=== PATIENT | male | born 1940 | race Caucasian/White ===

== ENCOUNTER 2016-11-17 10:51 | Emergency (ER) | payer OTHER ==
[2016-11-17 11:15] VITALS: BP 147/51
--- NOTE | 2016-11-17 12:30 | Diag Imaging Result Document ---
PROCEDURE NAME: KNEE 3 VIEWS LEFT - 11/17/2016 LEFT KNEE 3 VIEWS: FINDINGS: No fracture. No dislocation. Mild to moderate medial joint space narrowing. There is bone spurring at the medial tibial plateau and femoral condyle. There is also small bone spurring to the patella. IMPRESSION: 1. No acute bony injury. 2. Moderate arthritic changes.
--- NOTE | 2016-11-17 12:55 | PROVIDER DOCUMENTATION ---
HPI-Musculoskeletal Pain/Inj - GENERAL Source: patient <Bren Bhakta - Last Filed: 11/17/16 13:20> - GENERAL Source: patient - HX OF PRESENT ILLNESS-MUSKULOSKELTAL Quality of Pain: reports: aching Severity in ED: moderate Onset/Duration: last night Timing: still present Any recent injury?: Yes Similar Symptoms Previously?: No Recently seen or treated by another doctor?: No <Geoff Rodriguez - Last Filed: 11/17/16 13:31> - GENERAL Chief Complaint: Extremity Injury Stated Complaint: KNEE INJURY Time Seen by Provider: 11/17/16 12:53 - HX OF PRESENT ILLNESS-MUSKULOSKELTAL Nature of Presenting Problem: Reports to er with cc of left knee pain secondary to carrying food to the table last night and tripping and falling hitting inferior aspect of left knee on stairs. Reports unable to bear weight now fully. Denies numbness,tingling, swelling. (Geoff Rodriguez) Review of Systems - Adult - REVIEW OF SYSTEMS - ADULT Constitutional: denies: chills, fever, fatique Eyes: reports: no symptoms reported Ears, Nose, Mouth & Throat: reports: no symptoms reported Cardiovascular: denies: chest pain, syncope Respiratory: denies: cough, dyspnea on exertion, shortness of breath, wheezing Gastrointestinal: denies: abdominal pain, diarrhea, nausea, vomiting Genitourinary: denies: dysuria, flank pain, frequent UTI's Musculoskeletal: reports: see HPI, joint pain. denies: frequent leg cramps, joint swelling Integumentary: reports: no symptoms reported Neurological: reports: no symptoms reported Psychiatric: reports: no symptoms reported Endocrine: reports: no symptoms reported Hematologic/Lymphatic: reports: no symptoms reported Allergic/Immunologic: reports: no symptoms reported All Other Systems: Reviewed and Negative <Geoff Rodriguez - Last Filed: 11/17/16 13:31> Past History - Adult - PAST MEDICAL HISTORY-ADULT Review of Records: reports: Nursing Assessment Review, Medications Reviewed Major Childhood Illnesses: reports: denies history Cardiovascular: reports: CAD Respiratory: reports: asthma - PRIOR SURGERIES/PROCEDURES Surgical/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 - IMMUNIZATION STATUS Childhood Immunizations: See Nurse Assessment Flu Vaccine: See Nurse Assessment - FAMILY HISTORY Family History: reviewed, not pertinent - SOCIAL HISTORY Smoking: other (former) Substance Use: none/never <Geoff Rodriguez - Last Filed: 11/17/16 13:31> Physical Exam-Injury Related - Physical Exam-Injury Related Initial Vital Signs Reviewed: Yes General Appearance: appears well, alert, no apparent distress Immobilization?: negative: backboard, C-collar Eyes: PERRL/EOMI Neck: non-tender, full range of motion, supple, normal inspection Respiratory: chest non-tender, lungs clear, normal breath sounds, no pleuratic chest pain, no respiratory distress, no accessory muscle use Cardiovascular: normal peripheral pulses, regular rate, rhythm, no edema, no gallop, no JVD, no murmur Abdominal Exam: non tender, soft, no organomegaly, no pulsatile mass Back Exam: normal inspection, no CVA tenderness, no vertebral tenderness Extremity: normal range of motion, no pedal edema, no calf tenderness, normal capillary refill, tenderness (left knee ttp patellar tendon negative laxity neg ap drawer no ttp joint line). negative: swelling Integumentary: normal color, warm/dry Psych/Mental Status: normal mood/affect, normal thought content, normal thought process, oriented x 3 - Glascow Coma Score Best Eye Response ([place]): (4) open spontaneously Best Verbal Response ([place]): (5) oriented Best Motor Response ([place]): (6) obeys commands [place] Total: 15 <Geoff Rodriguez - Last Filed: 11/17/16 13:31> Progress - XRAY 1 XRAY: Left XRAY Study: Knee Impression: See EMR Report (1. No acute bony injury. 2. Moderate arthritic changes. -per Dr. Garcia) <Bren Bhakta - Last Filed: 11/17/16 13:20> <Geoff Rodriguez - Last Filed: 11/17/16 13:31> - PLAN OF CARE/RESULTS Progress/Plan/Lab Results: Orders Category Date Time Status KNEE 3 VIEWS LEFT [RAD] Stat Exams 11/17/16 11:15 Completed Vital Signs - 24 hr 11/17/16 11:12 Temperature 98.1 F Pulse Rate 70 Respiratory 20 Rate Blood Pressure 147/51 O2 Sat by Pulse 99 Oximetry (Geoff Rodriguez) Departure - Departure Time of Disposition Order: 13:20 Certified Medical Emergency: Emergent <Bren Bhakta - Last Filed: 11/17/16 13:20> <Geoff Rodriguez - Last Filed: 11/17/16 13:31> - Departure DIAGNOSIS: Patellar tendon strain Qualifiers: Encounter type: initial encounter Laterality: left Qualified Code(s): S86.812A - Strain of other muscle(s) and tendon(s) at lower leg level, left leg, initial encounter Knee injury Qualifiers: Encounter type: initial encounter Laterality: left Qualified Code(s): S89.92XA - Unspecified injury of left lower leg, initial encounter Disposition: HOME 01 Condition: Stable Additional Instructions: Keep knee in immobilizer for at least 10 days. RICE often or heat as needed. No weight bearing for at least 14 days. Follow up with specialist for further evaluation. ED Follow Up Instructions: You have been treated by a care provider in the Emergency Department. These instructions are being provided to you so you can have an understanding of how to care for yourself upon discharge. Upon discharge from the Emergency Department, you are responsible for making arrangements for follow-up care by a physician of your choice. Take all prescribed medications as directed. Return to the Emergency Department immediately for any new or worsening symptoms. You may call the Physician Referral phone number at [phone] to obtain a list of Physicians who are taking new patients. Referrals: Js Delgado [Primary Care Provider] - Bharath Mcgarry MD [STAFF PHYSICIAN] - Attestation - Scribe Verification/Attestation Scribe:: Geoff Rodriguez Acting as Scribe for:: Bren Bhakta Scribe documention review:: This chart was documented by a scribe and accurately reflects the service the provider performed and the decisions made by the provider. <Geoff Rodriguez - Last Filed: 11/17/16 13:31> Physician Attestation - Physician Attestation I, the provider, attest to the following statement:: Bren Bhakta Physician documentation Attestation:: This documentation recorded by the scribe accurately reflects the service I personally performed and the decisions made by me. <Geoff Rodriguez - Last Filed: 11/17/16 13:31>
== END 2016-11-17 14:48 | disposition home or self-care (01) ==
LOC: ED 10:51
DX: S86.812A Strain of other muscle(s) and tendon(s) at lower leg level, left leg, initial encounter (principal); M25.562 Pain in left knee; I25.10 Atherosclerotic heart disease of native coronary artery without angina pectoris; Z95.1 Presence of aortocoronary bypass graft; W01.198A Fall on same level from slipping, tripping and stumbling with subsequent striking against other object, initial encounter

== ENCOUNTER 2017-05-25 17:55 | Inpatient (IN) ==
[2017-05-25] MEDS ORDERED: AMIDATE ONE (18:30)
[2017-05-25 18:44] LABS: ALLEN TEST YES; BE -12.8 mmoll (-3.0-3.0); BLOOD TYPE ARTERIAL; DRAW SITE R RADIAL; O2(CT) 13.1 mL/dL (15.0-23.0); PCO2(98.6) 38 mmHg (35-45); PO2(98.6) 223 mmHg (60-100); SAMPLE BLOOD; SAO2 99.1 % (95.0-100.0); SRATE 14 BPM; THB 9.1 g/dL (11.5-17.4); TVOL 600 mL
[2017-05-25 18:45] LABS: MODALITY VENTILATOR
[2017-05-25 18:46] LABS: pH(98.6) 7.19 (7.35-7.45)
[2017-05-25] MEDS ORDERED: AMIDATE IV ONE (18:51)
[2017-05-25] MEDS ORDERED: QUELICIN IV ONE (18:53)
[2017-05-25] MEDS ORDERED: ATIVAN IV STA (18:53)
[2017-05-25 19:16] LABS: INR 1.14; PROTIME 12.1 Seconds (9.2-11.7); PTT 29.2 Seconds (22.0-36.0)
[2017-05-25 19:18] LABS: BASO% 0.1 % (0.0-0.8); EOS# 0.01 X1000 (0.0-0.7); HEMATOCRIT 33.8 % (42.0-52.0); HEMOGLOBIN 11.5 g/dL (14.0-18.0); IMM GRAN# 0.13 X1000 (0.0-0.04); IMM GRAN% 0.6 % (0.0-0.5); LYMPH# 1.19 X1000 (1.2-3.4); LYMPH% 5.3 % (20.5-51.1); MANUAL DIFF NEEDED? NO; MCH 29.9 PG (27-31); MONO# 1.44 X1000 (0.11-0.59); MONO% 6.4 % (1.7-9.3); MPV 10.8 FL (7.4-10.4); NEUT% 87.6 % (42.2-75.2); PLT 290 X1000 (130-400); RBC 3.84 XMIL (4.7-6.1)
[2017-05-25] MEDS ORDERED: NS 2,000 ML IV ONE (19:21)
[2017-05-25] MEDS ORDERED: NS 2,000 ML ONE (19:22)
[2017-05-25 19:39] LABS: ALBUMIN 3.3 g/dL (3.5-5.0); POTASSIUM 3.7 mmol/L (3.5-5.1); TOTAL BILIRUBIN 0.34 mg/dL (0.20-1.00); TOTAL PROTEIN 6.3 g/dL (6.3-8.3)
[2017-05-25] MEDS: LEVOPHED 8 MG in D5 1/2 NS 250 ML IV SCH ×4 (19:55→23:03)
[2017-05-25] MEDS: VERSED 100 MG in NS 80 ML IV SCH ×2 (19:56→20:05)
[2017-05-25 20:03] LABS: CK INDEX 1.5 (0.0-2.5); CK-MB 11.33 ng/mL (0.0-5.0)
[2017-05-25] MEDS ORDERED: DIPRIVAN 1% 1,000 MG/100 ML BOTTLE IV SCH (20:18)
[2017-05-25] MEDS ORDERED: ZEMURON IV ONE (20:24)
[2017-05-25] MEDS ORDERED: NORCURON IV ONE (20:45)
[2017-05-25 20:49] LABS: ALLEN TEST YES; BE -9.6 mmoll (-3.0-3.0); BLOOD TYPE ARTERIAL; DRAW SITE R RADIAL; METHB 0.5 % (0.0-1.5); O2(CT) 12.1 mL/dL (15.0-23.0); PCO2(98.6) 36 mmHg (35-45); PO2(98.6) 120 mmHg (60-100); SAMPLE BLOOD; SAO2 100.3 % (95.0-100.0); SRATE 14 BPM; THB 8.6 g/dL (11.5-17.4); TVOL 600 mL; pH(98.6) 7.27 (7.35-7.45)
[2017-05-25 20:50] LABS: MODALITY VENTILATOR
[2017-05-25 23:20] LABS: CK-MB 33.23 ng/mL (0.0-5.0)
[2017-05-25] MEDS ORDERED: VANCOMYCIN IV PER PHARMACY MISC SCH (23:50)
[2017-05-25] MEDS ORDERED: ZOFRAN IV PRN (23:50)
[2017-05-26] MEDS: NS 1,000 ML IV ONE ×2 (00:40→00:43)
[2017-05-26] MEDS: ZOSYN 2.25 GM in NS 50 ML IV SCH ×3 (00:41→16:05)
[2017-05-26] MEDS ORDERED: NS 1,000 ML IV ONE (01:53)
[2017-05-26] MEDS ORDERED: VANCOMYCIN 2,050 MG in NS 500 ML IV ONE (02:00)
[2017-05-26] MEDS ORDERED: HEPARIN SUBQ SCH (02:30)
[2017-05-26] MEDS ORDERED: TYLENOL PR PRN (02:35)
[2017-05-26] MEDS ORDERED: PROTONIX IV SCH (02:45)
[2017-05-26] MEDS ORDERED: SODIUM CHLORIDE 0.9% INJ SCH (02:45)
[2017-05-26] MEDS: HEPARIN SUBQ SCH ×2 (03:38→16:05)
[2017-05-26 04:46] LABS: ALLEN TEST YES; BE -4.5 mmoll (-3.0-3.0); BLOOD TYPE ARTERIAL; DRAW SITE R RADIAL; METHB 1.2 % (0.0-1.5); O2(CT) 10.1 mL/dL (15.0-23.0); PCO2(98.6) 34 mmHg (35-45); PO2(98.6) 58 mmHg (60-100); SAMPLE BLOOD; SAO2 93.7 % (95.0-100.0); SRATE 14 BPM; THB 7.8 g/dL (11.5-17.4); TVOL 600 mL; pH(98.6) 7.38 (7.35-7.45)
[2017-05-26 04:47] LABS: MODALITY VENTILATOR
[2017-05-26 05:16] LABS: BASO% 0.1 % (0.0-0.8); HEMATOCRIT 23.5 % (42.0-52.0); IMM GRAN# 0.06 X1000 (0.0-0.04); IMM GRAN% 0.4 % (0.0-0.5); LYMPH# 1.15 X1000 (1.2-3.4); MANUAL DIFF NEEDED? YES; MCH 29.6 PG (27-31); MONO# 0.94 X1000 (0.11-0.59); MONO% 5.7 % (1.7-9.3); MPV 11.1 FL (7.4-10.4); NEUT% 86.8 % (42.2-75.2); PLT 174 X1000 (130-400)
[2017-05-26] MEDS ORDERED: D50W SYRINGE IV ONE (05:53)
[2017-05-26 06:24] LABS: ALBUMIN 2.2 g/dL (3.5-5.0); MAGNESIUM 1.5 mg/dL (1.5-2.7); POTASSIUM 4.5 mmol/L (3.5-5.1); TOTAL BILIRUBIN 0.45 mg/dL (0.20-1.00); TOTAL PROTEIN 4.1 g/dL (6.3-8.3)
[2017-05-26 06:28] LABS: CALCIUM 6.8 mg/dL (8.8-10.2)
[2017-05-26] MEDS ORDERED: D5 NS 1,000 ML IV SCH (06:54)
[2017-05-26 06:56] LABS: BANDS 10 % (0-1); LYMPHS 2 % (21-51); MONO 4 % (1-9)
[2017-05-26 06:57] LABS: HYPOCHROM 1+
[2017-05-26 08:09] LABS: CK-MB 25.35 ng/mL (0.0-5.0)
[2017-05-26] MEDS: VERSED 100 MG in NS 80 ML IV SCH (08:25)
[2017-05-26 11:02] LABS: HEMATOCRIT 24.7 % (42.0-52.0); HEMOGLOBIN 8.1 g/dL (14.0-18.0); MCH 29.1 PG (27-31); MCHC 32.8 g/dL (33-37); MCV 88.8 FL (81-99); MPV 10.9 FL (7.4-10.4); RBC 2.78 XMIL (4.7-6.1)
[2017-05-26] MEDS ORDERED: D50W SYRINGE ONE (14:10)
[2017-05-26] MEDS ORDERED: D10W 1,000 ML IV SCH (14:43)
[2017-05-26 15:15] LABS: CK INDEX 1.3 (0.0-2.5); CK-MB 21.59 ng/mL (0.0-5.0)
[2017-05-26 16:07] LABS: URINE SOURCE CATH
[2017-05-26 16:38] LABS: BILIRUBIN URINE NEGATIVE (NEGATIVE); BLOOD URINE MODERATE (NEGATIVE); COLOR ORANGE; GLUCOSE URINE 150 mg/dL (NEGATIVE); LEUKOCYTES URINE SMALL (NEGATIVE); NITRITE URINE NEGATIVE (NEGATIVE); PH URINE 5.5; PROTEIN URINE 200 mg/dL (NEGATIVE); SP GRAVITY URINE 1.022; TURBIDITY URINE TURBID (CLEAR); UROBILINOGEN URINE NORMAL (NORMAL)
[2017-05-26 16:40] LABS: URINE MICRO REVIEW NEEDED? YES
[2017-05-26 16:42] LABS: UR EPITHELIAL CELLS <10 /HPF (<10); URINE BACTERIA NEGATIVE /HPF; URINE CULTURE NEEDED? YES; URINE RBC <10 /HPF (<10)
[2017-05-26] MEDS ORDERED: REGLAN IV SCH (17:00)
[2017-05-26 17:02] LABS: UR CREAT RANDOM 259.5 mg/dL (14-26); UR PROT RANDOM 277.8 mg/dL
[2017-05-26 17:04] LABS: URINE CASTS GRANULAR PRESENT
[2017-05-26] MEDS ORDERED: NEO-SYNEPHRINE 50 MG in NS 250 ML IV SCH ×2 (21:30→22:00)
[2017-05-26 21:50] LABS: ALLEN TEST YES; BE -21.2 mmoll (-3.0-3.0); BLOOD TYPE ARTERIAL; DRAW SITE R RADIAL; METHB 2.3 % (0.0-1.5); O2(CT) 4.1 mL/dL (15.0-23.0); PCO2(98.6) 50 mmHg (35-45); PO2(98.6) 65 mmHg (60-100); SAMPLE BLOOD; SAO2 92.4 % (95.0-100.0); SRATE 14 BPM; THB 3.1 g/dL (11.5-17.4); TVOL 700 mL
[2017-05-26 21:52] LABS: MODALITY VENTILATOR
[2017-05-26 21:53] LABS: pH(98.6) 6.87 (7.35-7.45)
[2017-05-26] MEDS: LEVOPHED 8 MG in D5 1/2 NS 250 ML IV SCH (21:55)
[2017-05-26] MEDS ORDERED: SODIUM BICARBONATE 8.4% IV PUSH ONE (21:57)
[2017-05-26] MEDS ORDERED: PITRESSIN 40 UNIT in NS 100 ML IV SCH (22:00)
[2017-05-26] MEDS ORDERED: SODIUM BICARBONATE 8.4% ONE (22:02)
[2017-05-26 22:26] LABS: HEMATOCRIT 16.3 % (42.0-52.0); HEMOGLOBIN 5.2 g/dL (14.0-18.0); MCH 29.9 PG (27-31); MCHC 31.9 g/dL (33-37); MCV 93.7 FL (81-99); MPV 11.5 FL (7.4-10.4); RBC 1.74 XMIL (4.7-6.1)
[2017-05-26 22:29] LABS: ALBUMIN 1.6 g/dL (3.5-5.0); POTASSIUM 5.3 mmol/L (3.5-5.1); TOTAL BILIRUBIN 0.29 mg/dL (0.20-1.00); TOTAL PROTEIN 2.8 g/dL (6.3-8.3)
[2017-05-26 22:30] LABS: CALCIUM 6.7 mg/dL (8.8-10.2)
[2017-05-26 22:47] LABS: CK INDEX 1.6 (0.0-2.5); CK-MB 29.88 ng/mL (0.0-5.0)
[2017-05-26 23:12] VITALS: BP 133/65
[2017-05-28] MEDS ORDERED: VANCOMYCIN 1,600 MG in NS 250 ML IV SCH (13:00)
== END 2017-05-26 22:34 | disposition expired ==
LOC: ED 17:55 → SUATTDRO 23:11 → ICU 23:11
PROVIDERS: ATTEND Internal Medicine